=== PATIENT | male | born 1950 | race Caucasian/White ===

== ENCOUNTER 2017-08-01 13:18 | Inpatient (IN) ==
[2017-08-01] MEDS ORDERED: Naloxone 0.4 MG/ML INJ IVP ONE (13:28)
[2017-08-01] MEDS ORDERED: 0.9 % Sodium Chloride 1,000 ML IVC SCH ×2 (13:30→18:22)
[2017-08-01] MEDS ORDERED: 0.9 % Sodium Chloride 500 ML IVC ONE (13:30)
--- NOTE | 2017-08-01 13:31 | Emergency Department Note ---
Disposition Clinical Impression: Sepsis syndrome Altered mental status Qualifiers: Altered mental status type: stupor Qualified Code(s): R40.1 - Stupor Pneumonia Qualifiers: Pneumonia type: due to unspecified organism Laterality: left Lung location: lower lobe of lung Qualified Code(s): J18.1 - Lobar pneumonia, unspecified organism Renal failure Qualifiers: Renal failure chronicity: acute Acute renal failure type: unspecified Qualified Code(s): N17.9 - Acute kidney failure, unspecified Disposition: Admitted As Inpatient Condition: Serious Referrals: Dawson Foster MD [Primary Care Provider] - Forms: ED Satisfaction Letter Altered Mental Status HPI - General Chief Complaint: ED General Medical Stated Complaint: low spo2 Time Seen by Provider: 08/01/17 13:20 Source: EMS Mode of arrival: EMS Limitations: altered mental status, physical limitation Nursing Notes Reviewed: Yes Vital Signs Reviewed: Yes - History of Present Illness HPI Narrative: The patient is continued with altered mental status at longterm. He has had increased respiratory rate and reported oxygen saturations of 73% on 3 L nasal cannula. He continues with Roxanol every 4 hours for terminal agitation and his under hospice care. He remains a full code. He has had temperature 99.5 axillary. He has been sounding congested with occasional congested cough. He has not been having vomiting, diarrhea, rashes. He has been somnolent and ultimately very poorly arousable. For EMS and a saturation of 73% and they placed him on a nonrebreather mask. By finger pulse oximetry saturation increased to 80% and ultimately 91% with albuterol nebulizer treatment. They did not check of 143 recorded respiratory rate of 30, blood pressure 112/54 and a heart rate 113. On arrival here he is responsive to noxious stimuli, has elevated respiratory rate and moist sounding breath sounds. complaint: altered mental status, decreased responsiveness Onset (ago): day(s) Timing confirmed by: caregiver Pain Severity: none - Related Data Home Medications Medication Instructions Recorded Confirmed Acetaminophen [Tylenol] 500 mg PO Q6HR PRN 10/12/15 08/01/17 Aspirin 325 mg PO DAILY 10/12/15 08/01/17 Buspirone HCl [Buspar] 5 mg PO BID 10/12/15 08/01/17 Cranberry Fruit Concentrate 450 mg PO DAILY 10/12/15 08/01/17 [Cranberry] Finasteride [Proscar] 5 mg PO DAILY 10/12/15 08/01/17 Mv-Mn/FA/Coq10/Lycopene/Lutein 1 tab PO DAILY 10/12/15 08/01/17 [Theragran-M Premier 50+ Caplet] Tamsulosin HCl [Flomax] 0.4 mg PO DAILY 10/12/15 08/01/17 Divalproex (24 HR) [Depakote ER 500 mg PO HS 10/13/15 08/01/17 (24 HR)] Carvedilol [Coreg] 6.25 mg PO BIDWM 06/24/17 08/01/17 Fluphenazine [Prolixin] 1 mg PO TID 06/24/17 08/01/17 Mirtazapine 7.5 mg PO HS 06/24/17 08/01/17 Benztropine [Cogentin] 1 mg PO BID 07/30/17 08/01/17 Hyoscyamine SL [Levsin Sl] 0.125 mg SL Q2H PRN 07/30/17 08/01/17 MORPHINE SUL Oral CONC [Roxanol 5 mg PO Q4H PRN 07/30/17 08/01/17 Oral Conc] Pantoprazole Sodium [Protonix] 40 mg PO BID 07/30/17 08/01/17 Promethazine [Phenergan] 25 mg RC BID PRN 07/30/17 08/01/17 Vitamin E Acetate [Vitamin E] 400 unit PO DAILY 07/30/17 08/01/17 amLODIPine [Norvasc] 5 mg PO DAILY 07/30/17 08/01/17 Allergies Allergy/AdvReac Type Severity Reaction Status Date / Time No Known Allergies Allergy Verified 10/12/15 16:38 All systems ED: reviewed and negative except as stated. Past Medical History - Past Medical History Source: old records reviewed, nursing notes reviewed Medical history: Reports: coronary artery disease, CVA, dementia, GERD, GI bleed , hypertension, renal disease, other (BPH) Psychiatric history: Reports: anxiety, depression, other (Alcoholic psychosis/ dementia) - Social History Smoking Status: Former smoker Smokeless Tobacco Status: No Alcohol use: Reports: heavy. Denies: recent Drug use: Reports: none Physical Exam - General Limitations: altered mental status, physical limitation General appearance: obtunded - Head Head exam: atraumatic, normocephalic, normal inspection - Eye Eye exam: Present: normal appearance, PERRL, EOMI. Absent: conjunctival injection, miosis, mydriasis - ENT ENT exam: normal exam, normal oropharynx, mucous membranes dry - Neck Neck exam: Present: normal inspection, full ROM, trachea midline - Chest Chest inspection: Present: normal inspection, symmetric chest wall rise - Respiratory Respiratory exam: Present: respiratory distress (Tachypnea). Absent: wheezes, accessory muscle use, prolonged expiratory phase - Cardiovascular Cardiovascular exam: Present: regular rate, normal rhythm, tachycardia, normal heart sounds - Abdominal Exam Abdominal exam: Present: soft, Non-Tender. Absent: tenderness, distention, guarding, rebound, rigidity - Extremities Exam Extremities exam: Present: normal inspection, full ROM. Absent: tenderness, normal capillary refill (Sluggish), pedal edema - Expanded Lower Extremity Exam Gait: not tested/not observed - Neurological Exam Neurological exam: Absent: alert, oriented X3 - Psychiatric Psychiatric exam: Present: other (Patient is very sluggishly responsive.) - Skin Skin exam: Present: dry, intact, pallor. Absent: cyanosis, diaphoresis Course Course Narrative: 1507: All labs and EKG and imaging have been discussed with Dr. West. Given the patient is hospice but full code he does not believe that he can be held at this facility. He requests that I contact Dr. Foster to see if there is any way to amend his CODE STATUS. If he remains full code he will need transfer for full sepsis protocol, intubation if needed, possible dialysis and the possibility of surgical vascular access. This would not necessarily be keeping with his spirit of a hospice patient. I advised that it is our understanding that Dr. Foster did want to change his CODE STATUS but his guardian would not make him anything but full code. I have placed a page to Dr. Foster and a call to the office of his guardian, Wood Tile Installer Ayden Puckett. 1535: I have spoken at length with Ayden Puckett and subsequently with Dr. Foster. Ayden Puckett would like to discuss the prognosis and care with Dr. Foster to better determine what his CODE STATUS should be. I have given Ayden Puckett's phone number to Dr. Foster and we are awaiting a callback with regard to their decision. 1610: I spoke with Dr. Foster and with Ayden Puckett again. The patient will be made a DNR CC status and Dr. West is agreeable with his admission at this facility. DNR CC form has been signed by myself, filled out and faxed to his guardian, Ayden Puckett. We are awaiting the return of this form prior to admitting the patient to this facility. 1700: The office of Ayden Puckett has been contacted. He does have the paperwork and we are awaiting his signature and return of the forms. Vital Signs Temperature 98.8 F 08/01/17 13:19 Pulse Rate 110 08/01/17 13:19 Respiratory Rate 46 08/01/17 13:19 Blood Pressure 50/31 08/01/17 13:19 O2 Sat by Pulse Oximetry 92 08/01/17 13:19 Temperature 98.8 F 08/01/17 13:19 Pulse Rate 91 08/01/17 16:13 Respiratory Rate 43 08/01/17 16:13 Blood Pressure 132/82 08/01/17 16:13 O2 Sat by Pulse Oximetry 92 08/01/17 16:13 Oxygen Delivery Oxygen Delivery Nasal Cannula Altered Mental Status - Differential Diagnosis Likely: altered mental status, delirium, dementia, hyponatremia, sepsis - Medical Records Medical records reviewed: Yes I reviewed the patient's medical records. - Lab Data Lab results reviewed: Yes I reviewed the patient's lab results. Result diagrams: 08/01/17 14:04 08/01/17 14:04 Lab Results 08/01/17 08/01/17 08/01/17 Range/Units 14:04 14:04 14:04 WBC 30.6 H* (4.3-11.1) K/mcL RBC 4.81 (4.19-5.50) M/mcL Hgb 15.6 (12.9-16.9) g/dL Hct 47.5 (37.5-50.1) % MCV 98.8 (83.0-100.0) fL MCH 32.4 (28.0-33.3) pg MCHC 32.8 (31.6-35.5) g/dL RDW 14.5 (11.5-14.5) % Plt Count 167 (140-400) K/mcL MPV 12.2 (9.4-12.4) fL Seg Neutrophils % 12.0 % Band Neutrophils % 24.0 H (0-4) % Lymphocytes % 34.0 % Monocytes % 4.0 % Metamyelocytes % 12.0 H (0) % Myelocytes % 6.0 H (0) % Promyelocytes % 6.0 H (0) % Blast Cells % 2.0 H (0) % Neutrophils # 11.0 H (1.6-8.9) K/mcL Lymphocytes # 10.4 H (0.6-4.6) K/mcL Monocytes # 1.2 (0.0-1.3) K/mcL Nucleated RBCs/100 WBC 2.2 H (0) /100 WBC Toxic Granulation Present A (Not Present) Toxic Vacuolation Present A (Not Present) Platelet Estimate Normal (Normal) PT 12.2 H (9.4-12.1) Seconds INR 1.1 APTT 29.7 (26.0-36.0) Seconds Sodium 148 H (136-145) mEq/L Potassium 4.6 (3.5-5.1) mEq/L Chloride 111 H (98-107) mEq/L Carbon Dioxide 15 L (23-29) mEq/L BUN 94 H (8-23) mg/dL Creatinine 5.58 H (0.70-1.30) mg/dL Est GFR ( Amer) 13 L (> 60) Est GFR (Non-Af Amer) 10 L (> 60) BUN/Creatinine Ratio 17 (6-26) Glucose 135 H (70-105) mg/dL Calculated Osmolality 337 H (280-300) Lactic Acid (0.5-2.2) mmol/L Calcium 7.6 L (8.6-10.3) mg/dL Total Bilirubin 0.4 (0.3-1.0) mg/dL Direct Bilirubin 0.2 (0.0-0.2) mg/dL Indirect Bilirubin 0.2 (0.0-1.2) mg/dL AST 154 H (13-39) Units/L ALT 42 (7-52) Units/L Alkaline Phosphatase 52 (34-104) Units/L Troponin I 0.05 H* (< 0.04) ng/mL Serum Total Protein 5.8 L (6.4-8.9) g/dL Albumin 2.2 L (3.5-5.7) g/dL Globulin 3.6 H (2.4-3.5) g/dL Albumin/Globulin Ratio 0.6 L (1.1-2.2) 08/01/17 Range/Units 14:04 WBC (4.3-11.1) K/mcL RBC (4.19-5.50) M/mcL Hgb (12.9-16.9) g/dL Hct (37.5-50.1) % MCV (83.0-100.0) fL MCH (28.0-33.3) pg MCHC (31.6-35.5) g/dL RDW (11.5-14.5) % Plt Count (140-400) K/mcL MPV (9.4-12.4) fL Seg Neutrophils % % Band Neutrophils % (0-4) % Lymphocytes % % Monocytes % % Metamyelocytes % (0) % Myelocytes % (0) % Promyelocytes % (0) % Blast Cells % (0) % Neutrophils # (1.6-8.9) K/mcL Lymphocytes # (0.6-4.6) K/mcL Monocytes # (0.0-1.3) K/mcL Nucleated RBCs/100 WBC (0) /100 WBC Toxic Granulation (Not Present) Toxic Vacuolation (Not Present) Platelet Estimate (Normal) PT (9.4-12.1) Seconds INR APTT (26.0-36.0) Seconds Sodium (136-145) mEq/L Potassium (3.5-5.1) mEq/L Chloride (98-107) mEq/L Carbon Dioxide (23-29) mEq/L BUN (8-23) mg/dL Creatinine (0.70-1.30) mg/dL Est GFR ( Amer) (> 60) Est GFR (Non-Af Amer) (> 60) BUN/Creatinine Ratio (6-26) Glucose (70-105) mg/dL Calculated Osmolality (280-300) Lactic Acid 6.1 H* (0.5-2.2) mmol/L Calcium (8.6-10.3) mg/dL Total Bilirubin (0.3-1.0) mg/dL Direct Bilirubin (0.0-0.2) mg/dL Indirect Bilirubin (0.0-1.2) mg/dL AST (13-39) Units/L ALT (7-52) Units/L Alkaline Phosphatase (34-104) Units/L Troponin I (< 0.04) ng/mL Serum Total Protein (6.4-8.9) g/dL Albumin (3.5-5.7) g/dL Globulin (2.4-3.5) g/dL Albumin/Globulin Ratio (1.1-2.2) - Radiology Data Radiology results reviewed: Yes I reviewed the patient's radiology results. Single view chest x-ray is performed. This does not demonstrate evidence for infiltrate, effusion, pneumothorax, foreign body or heart failure. Patient appears hyperexpanded consistent with emphysema/COPD. The cardiac silhouette is normal. I do not see abnormality to the osseous structures of the chest. This is on my interpretation. Impressions Chest X-Ray 08/01/17 13:28 IMPRESSION: Mild left lower lobe atelectasis versus pneumonia. D/ / Juan Manuel Carmen MD / Juan Manuel Carmen MD Interpreting Provider: Juan Manuel Carmen MD - EKG Data EKG attestation: Yes I reviewed and interpreted this EKG. EKG shows normal: sinus rhythm, axis, intervals, QRS complexes, ST-T waves Rate: tachycardia (109) Interpretation: no acute changes, nonspecific ST-T wave changes TPA Checklist - LKW: 3-4.5 hrs Add. Warnings/Precautions Patient/family understanding: The patient/family members have been counseled and understood the risk, benefit , and alternatives of treatment. Critical Care Time Critical Care Time: Yes Total Critical Care Time: 75 Attestation: As this patient did present with signs and symptoms of potential life- threatening illness requiring my urgent intervention, total critical care time in this patient's care has been 75 minutes, not withstanding separately reportable procedures.
[2017-08-01 14:21] LABS: Hematocrit 47.5 % (37.5-50.1); Hemoglobin 15.6 g/dL (12.9-16.9); Mean Corpuscular HGB Conc 32.8 g/dL (31.6-35.5); Mean Corpuscular Hemoglobin 32.4 pg (28.0-33.3); Mean Corpuscular Volume 98.8 fL (83.0-100.0); Mean Platelet Volume 12.2 fL (9.4-12.4); Nucleated Red Blood Cells 2.2 /100 WBC (0); Platelet Count 167 K/mcL (140-400); Red Blood Count 4.81 M/mcL (4.19-5.50); Red Cell Distribution Width 14.5 % (11.5-14.5)
[2017-08-01 14:22] LABS: INR 1.1; Prothrombin Time 12.2 Seconds (9.4-12.1)
[2017-08-01] MEDS ORDERED: Azithromycin 500 MG in D5% in Water 250 ML IVPB ONE (14:22)
[2017-08-01 14:25] LABS: Activated Partial Thrombo Time 29.7 Seconds (26.0-36.0)
[2017-08-01 14:31] LABS: Albumin 2.2 g/dL (3.5-5.7); Albumin/Globulin Ratio 0.6 (1.1-2.2); Bilirubin,Direct 0.2 mg/dL (0.0-0.2); Bilirubin,Indirect 0.2 mg/dL (0.0-1.2); Bilirubin,Total 0.4 mg/dL (0.3-1.0); Calcium 7.6 mg/dL (8.6-10.3); Globulin 3.6 g/dL (2.4-3.5); Potassium 4.6 mEq/L (3.5-5.1); Total Protein 5.8 g/dL (6.4-8.9)
[2017-08-01] MEDS ORDERED: 0.9 % Sodium Chloride 1,000 ML IVC ONE ×2 (14:48→17:01)
[2017-08-01 15:04] LABS: Troponin I 0.05 ng/mL (< 0.04)
[2017-08-01 15:11] LABS: Lymphocytes # 10.4 K/mcL (0.6-4.6); Monocytes # 1.2 K/mcL (0.0-1.3)
[2017-08-01 15:12] LABS: Platelet Estimate Normal (Normal); Toxic Granulation Present (Not Present); Toxic Vacuolation Present (Not Present)
[2017-08-01] MEDS ORDERED: Naloxone 0.4 MG/ML INJ IVP PRN (18:22)
[2017-08-01] MEDS ORDERED: Ondansetron 4 MG/2 ML VIAL IVP PRN (18:22)
[2017-08-01] MEDS ORDERED: Albuterol 2.5 MG/3 ML NEBULIZER IH PRN (18:22)
[2017-08-01] MEDS ORDERED: *HR* Morphine Soln 10 MG/5 ML UDC PO PRN (18:22)
--- NOTE | 2017-08-01 19:01 | Internal Med History&Physical ---
Date of Encounter: 08/01/17 Time of Encounter: 18:35 Assessment and Plan (1) Sepsis Current visit: No Status: Acute Suspect secondary to pneumonia although UA has not been checked. He was started on Rocephin and Zithromax in emergency room. He has been declared a DNR CC by his POA. He will not be transferred to an ICU setting or have aggressive intervention such as intubation or IV pressors done. Qualifiers: Sepsis type: sepsis due to unspecified organism Qualified Code(s): A41.9 - Sepsis, unspecified organism (2) Renal failure Current visit: Yes Status: Acute Creatinine was 1.07 on 06/24/2017. We will give IV fluids and monitor renal indices. Qualifiers: Renal failure chronicity: acute Acute renal failure type: unspecified Qualified Code(s): N17.9 - Acute kidney failure, unspecified Internal Medicine - H&P: HPI Chief complaint: Unresponsive Admitted From: Emergency Dept Plans for Post Hospital Care: Home History of present illness: Mr. Farias is a 66 year old male who was sent from [facility] to emergency room after staff reported he had altered mental status with decreased responsiveness. He had oxygen saturation 73% on 3 L nasal cannula. Chest x-ray in emergency room showed possible pneumonia. He was felt to have sepsis and [facility]. He is obtunded and nonverbal and cannot give any history. Past Med Surg Social Fam HX - Past Medical History Medical history: coronary artery disease, CVA, dementia, GERD, GI bleed, hypertension, renal disease, other (BPH) Psychiatric history: anxiety, depression, other (Alcoholic psychosis/dementia) - Social History Smoking Status: Former smoker Smokeless Tobacco Status: No Alcohol use: heavy Drug use: none Internal Medicine - H&P: Meds Acetaminophen [Tylenol] 500 mg PO Q6HR PRN 10/12/15 [History] Aspirin 325 mg PO DAILY 10/12/15 [History] Buspirone HCl [Buspar] 5 mg PO BID 10/12/15 [History] Cranberry Fruit Concentrate [Cranberry] 450 mg PO DAILY 10/12/15 [History] Finasteride [Proscar] 5 mg PO DAILY 10/12/15 [History] Mv-Mn/FA/Coq10/Lycopene/Lutein [Theragran-M Premier 50+ Caplet] 1 tab PO DAILY 10/12/15 [History] Tamsulosin HCl [Flomax] 0.4 mg PO DAILY 10/12/15 [History] Divalproex (24 HR) [Depakote ER (24 HR)] 500 mg PO HS 10/13/15 [History] Carvedilol [Coreg] 6.25 mg PO BIDWM 06/24/17 [History] Fluphenazine [Prolixin] 1 mg PO TID 06/24/17 [History] Mirtazapine 7.5 mg PO HS 06/24/17 [History] Benztropine [Cogentin] 1 mg PO BID 07/30/17 [History] Hyoscyamine SL [Levsin Sl] 0.125 mg SL Q2H PRN 07/30/17 [History] MORPHINE SUL Oral CONC [Roxanol Oral Conc] 5 mg PO Q4H PRN 07/30/17 [History] Pantoprazole Sodium [Protonix] 40 mg PO BID 07/30/17 [History] Promethazine [Phenergan] 25 mg RC BID PRN 07/30/17 [History] Vitamin E Acetate [Vitamin E] 400 unit PO DAILY 07/30/17 [History] amLODIPine [Norvasc] 5 mg PO DAILY 07/30/17 [History] 3 Allergy/AdvReac Type Severity Reaction Status Date / Time No Known Allergies Allergy Verified 10/12/15 16:38 All Systems PM: A 10-system review of systems was performed and is negative for pertinent findings except as documented above in the HPI. Review of systems: Unobtainable because of obtundation. He has a diagnosis of advanced dementia also. - Constitutional Vitals: Temp Pulse Resp BP Pulse Ox 98.8 F 88 42 90/65 87 08/01/17 13:19 08/01/17 17:31 08/01/17 17:31 08/01/17 17:31 08/01/17 17:31 Exam: Gen.: He is a well-developed lean male lying in bed who appears in no severe distress. HEENT: Head is atraumatic and normocephalic. Eyes: His gaze is conjugate. He does not move his eyes spontaneously or to command. Mouth: Mucosa is dry but he is mouth breathing Neck: There is no thyromegaly or adenopathy noted. Heart: Regular without murmurs gallops or ectopics Lungs: Has shallow breath sounds. No wheezes or crackles are heard. Abdomen: Soft and nontender. No masses or guarding are noted. Extremities: There is no cyanosis edema or clubbing noted. Dorsalis pedis and posterior tibial pulses are trace palpable bilaterally. His feet are cool to touch but his hands are warm to touch. He has good capillary refill of his hands. Neurologic: Mental status: He is obtunded. He mumbles a few words on light touch but is not coherent in speech. Cranial nerves: He does not make spontaneous facial or eye movements. He does not follow commands. Motor: He has significant cogwheeling rigidity on passive range of motion of his wrist and arms. No further neurologic testing is attempted. Skin: Pale, warm, and dry Internal Med - H&P Results - Labs CBC & Chem 7: 08/01/17 14:04 08/01/17 14:04
[2017-08-01] MEDS ORDERED: Ipratropium/Albuterol Neb 3 ML IH SCH (22:00)
[2017-08-02 04:41] VITALS: BP 80/52
[2017-08-02 05:19] LABS: Basophils % 0.1 %; Eosinophils # 0.1 K/mcL (0.0-0.6); Eosinophils % 0.2 %; Hematocrit 48.7 % (37.5-50.1); Hemoglobin 14.9 g/dL (12.9-16.9); Lymphocytes # 6.5 K/mcL (0.6-4.6); Lymphocytes % 15.8 %; Mean Corpuscular HGB Conc 30.6 g/dL (31.6-35.5); Mean Corpuscular Hemoglobin 32.7 pg (28.0-33.3); Mean Platelet Volume 12.5 fL (9.4-12.4); Monocytes # 5.8 K/mcL (0.0-1.3); Monocytes % 14.2 %; Neutrophils # 21.9 K/mcL (1.6-8.9); Nucleated Red Blood Cells 4.8 /100 WBC (0); Red Blood Count 4.55 M/mcL (4.19-5.50); Red Cell Distribution Width 15.2 % (11.5-14.5); Segmented Neutrophils % 53.7 %
[2017-08-02 05:24] LABS: Platelet Count 83 K/mcL (140-400)
[2017-08-02 05:40] LABS: Albumin 1.9 g/dL (3.5-5.7); Albumin/Globulin Ratio 0.6 (1.1-2.2); Bilirubin,Total 0.2 mg/dL (0.3-1.0); Calcium 6.7 mg/dL (8.6-10.3); Globulin 3.1 g/dL (2.4-3.5); Potassium 5.3 mEq/L (3.5-5.1)
[2017-08-02] MEDS ORDERED: *HR* Enoxaparin 30 MG/0.3 ML SYRINGE SQ SCH (07:00)
--- NOTE | 2017-08-02 08:54 | Discharge Summary ---
Orders not resulted at time of discharge: Pending orders 08/01/17 22:00 C.difficile Toxin PCR (>=2yo) [MOLMIC] Routine Date of Encounter: 08/02/17 Time of Encounter: 08:50 - Discharge Diagnosis (1) Sepsis Priority: Primary Status: Acute Qualifiers: Sepsis type: sepsis due to unspecified organism Qualified Code(s): A41.9 - Sepsis, unspecified organism (2) Renal failure Priority: Secondary Status: Acute Qualifiers: Renal failure chronicity: acute Acute renal failure type: unspecified Qualified Code(s): N17.9 - Acute kidney failure, unspecified Hospital course: Mr. Farias is a 66 year old male who was sent from [facility] to emergency room after staff reported he had altered mental status with decreased responsiveness. He had oxygen saturation 73% on 3 L nasal cannula. Chest x- ray in emergency room showed possible pneumonia. He was felt to have sepsis and was admitted to [facility] for ongoing care needs. Initial orders written by the emergency room physician. I saw him on August 01 and performed a history and physical. He was started on Rocephin and Zithromax in the emergency room. He was declared DNR CC by his POA. He was given IV fluids by bolus and continuous with minimal change in blood pressure. Follow- up lab work the powder core tester of August 02 showed WBC 40.8 with creatinine rising further to 5.97. LFTs showed significant rise consistent with developing hepatic failure. At 5:16 AM he was found without pulse or respirations and was pronounced . No resuscitative efforts were done as per advanced directives. - Time Spent with Patient Total time spent providing and/or coordinating discharge services: - Discharge Medications Home Medications: Acetaminophen [Tylenol] 500 mg PO Q6HR PRN 10/12/15 [History] Aspirin 325 mg PO DAILY 10/12/15 [History] Buspirone HCl [Buspar] 5 mg PO BID 10/12/15 [History] Cranberry Fruit Concentrate [Cranberry] 450 mg PO DAILY 10/12/15 [History] Finasteride [Proscar] 5 mg PO DAILY 10/12/15 [History] Mv-Mn/FA/Coq10/Lycopene/Lutein [Theragran-M Premier 50+ Caplet] 1 tab PO DAILY 10/12/15 [History] Tamsulosin HCl [Flomax] 0.4 mg PO DAILY 10/12/15 [History] Divalproex (24 HR) [Depakote ER (24 HR)] 500 mg PO HS 10/13/15 [History] Carvedilol [Coreg] 6.25 mg PO BIDWM 06/24/17 [History] Fluphenazine [Prolixin] 1 mg PO TID 06/24/17 [History] Mirtazapine 7.5 mg PO HS 06/24/17 [History] Benztropine [Cogentin] 1 mg PO BID 07/30/17 [History] Hyoscyamine SL [Levsin Sl] 0.125 mg SL Q2H PRN 07/30/17 [History] MORPHINE SUL Oral CONC [Roxanol Oral Conc] 5 mg PO Q4H PRN 07/30/17 [History] Pantoprazole Sodium [Protonix] 40 mg PO BID 07/30/17 [History] Promethazine [Phenergan] 25 mg RC BID PRN 07/30/17 [History] Vitamin E Acetate [Vitamin E] 400 unit PO DAILY 07/30/17 [History] amLODIPine [Norvasc] 5 mg PO DAILY 07/30/17 [History] Allergies/Adverse Reactions: 3 Allergy/AdvReac Type Severity Reaction Status Date / Time No Known Allergies Allergy Verified 10/12/15 16:38 Date of admission: 08/01/17 17:41 Primary care physician: Dawson Foster MD - Constitutional Vitals: Temp Pulse Resp BP Pulse Ox 99.7 F H 94 42 80/52 87 08/02/17 04:32 08/02/17 04:32 08/02/17 04:32 08/02/17 04:32 08/01/17 17:31 - Patient Status Disposition: Condition: Serious - Discharge Instructions Follow Up With: Dawson Foster MD [Primary Care Provider] - 1 week
[2017-08-02] MEDS ORDERED: Azithromycin 500 MG in D5% in Water 250 ML IVPB SCH (15:00)
--- NOTE | 2017-08-02 15:01 | Electrocardiograph Report ---
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
== END 2017-08-02 05:16 | disposition expired | DRG 720 ==
LOC: EMEROOPIK 13:18 → INPPIK 17:41
PROVIDERS: ADMIT Internal Medicine; ATTEND Internal Medicine